=== PATIENT | male | born 1960 | race Caucasian/White ===

== ENCOUNTER 2020-07-03 06:18 | Observation (INO) | payer BC ==
[~2020-07-03] VITALS: Ht 170.2 cm; Wt 83.9 kg
[~2020-07-03 06:18] MED LIST: ARMOUR THYROID60 MG PO
[2020-07-03] MEDS ORDERED: SODIUM CHLORIDE 0.9% 1000ML 1,000 ML IV STA (06:24)
[2020-07-03] MEDS ORDERED: KETOROLAC TROMETHAMINE 30 MG/ML VIAL IV ONE (06:24)
[2020-07-03] MEDS ORDERED: ONDANSETRON HCL INJ 2MG/ML 2ML 2 MG/ML VIAL IV ONE (06:24)
[2020-07-03 06:46] LABS: BASOPHILS # (AUTO) 0.1 (0.0-0.1); BASOPHILS % 0.6 % (0.0-1.0); EOSINOPHILS # (AUTO) 0.1 (0.0-0.4); HEMATOCRIT 50.5 % (38.2-49.6); LYMPHOCYTES # (AUTO) 1.6 (1.0-3.2); LYMPHOCYTES % 20.7 % (18.0-39.1); MEAN CORPUSCULAR HEMOGLOBIN 31.7 pg (28-32); MEAN CORPUSCULAR HGB CONC 33.7 g/dL (31-35); MEAN CORPUSCULAR VOLUME 94.2 fL (81-99); MONOCYTES # (AUTO) 0.7 (0.2-0.8); MONOCYTES % 9.2 % (4.4-11.3); NEUTROPHILS # (AUTO) 5.4 (2.1-6.9); NEUTROPHILS % 67.7 % (38.7-80.0); PLATELET COUNT 192 x10e3/uL (140-360); RED BLOOD COUNT 5.36 x10e6/uL (4.3-5.7); RED CELL DISTRIBUTION WIDTH 12.4 % (11.7-14.4)
[2020-07-03 06:54] LABS: CLARITY,URINE CLEAR (CLEAR); COLOR,URINE YELLOW (YELLOW); KETONES,URINE NEGATIVE (NEGATIVE); LEUKOCYTE ESTERASE ,URINE NEGATIVE (NEGATIVE); NITRITE,URINE NEGATIVE (NEGATIVE); PROTEIN,URINE DIPSTICK NEGATIVE (NEGATIVE); URINE UROBILINOGEN 0.2 mg/dL (0.2 - 1)
[2020-07-03 07:08] LABS: BACTERIA,URINE RARE /HPF; EPITHELIAL CELLS,URINE FEW /LPF
[2020-07-03 07:16] LABS: ALANINE AMINOTRANSFERASE 19 IU/L (0-55); ALBUMIN 3.8 g/dL (3.5-5.0); ALKALINE PHOSPHATASE 56 IU/L (40-150); ANION GAP 13.2 mmol/L (8-16); BLOOD UREA NITROGEN 21 mg/dL (7-26); BUN/CREATININE RATIO 17 (6-25); CALCIUM 9.1 mg/dL (8.4-10.2); CARBON DIOXIDE 24 mmol/L (22-29); CHLORIDE 105 mmol/L (98-107); CREATINE KINASE 131 IU/L (30-200); CREATININE, SERUM 1.21 mg/dL (0.72-1.25); EST GLOMERULAR FILTRATION RATE > 60 ML/MIN (60-); GLUCOSE 133 mg/dL (74-118); POTASSIUM 4.2 mmol/L (3.5-5.1); SODIUM 138 mmol/L (136-145)
[2020-07-03] MEDS ORDERED: MORPHINE SULFATE INJ 4 MG/ML INJ 1ML IV PRN (09:15)
[2020-07-03] MEDS ORDERED: TAMSULOSIN HCL 0.4 MG CAP PO ONE (09:15)
[2020-07-03] MEDS ORDERED: MORPHINE SULFATE INJ 2 MG/ML SYR IV PRN (09:15)
[2020-07-03] MEDS ORDERED: ONDANSETRON HCL INJ 2MG/ML 2ML 2 MG/ML VIAL IV PRN ×2 (09:15→13:00)
[2020-07-03] MEDS: SODIUM CHLORIDE 0.9% 1000ML 1,000 ML IV SCH ×2 (09:29→13:35)
[2020-07-03] MEDS ORDERED: SODIUM CHLORIDE 0.9% 50ML 50 ML ONE (10:42)
[2020-07-03] MEDS ORDERED: IOPAMIDOL 370 MG/ML 200 ML INFUS..BTL INJ ONE (10:43)
[2020-07-03] MEDS ORDERED: LEVOTHYROXINE75 MCG PO (11:00)
[2020-07-03 11:47] VITALS: BP 145/68
[2020-07-03] MEDS ORDERED: KETOROLAC TROMETHAMINE 30 MG/ML VIAL IV PRN ×2 (12:00→13:30)
[2020-07-03] MEDS ORDERED: TRAMADOL HCL 50 MG TAB PO PRN (12:00)
[2020-07-03 12:02] VITALS: BP 145/68
[2020-07-03 12:09] VITALS: BP 145/68
[2020-07-03] MEDS ORDERED: DIPHENHYDRAMINE HCL 25 MG CAP PO PRN (13:00)
[2020-07-03] MEDS ORDERED: LIDOCAINE 4% PATCH TP PRN (13:00)
[2020-07-03] MEDS ORDERED: DEXTROSE 50% SYRINGE 50 ML IV PRN (13:00)
[2020-07-03] MEDS ORDERED: HYDROCODONE/APAP 5MG-325MG TAB PO PRN (13:00)
[2020-07-03] MEDS ORDERED: SIMETHICONE 80 MG CHEW PO PRN (13:00)
[2020-07-03] MEDS ORDERED: MELATONIN 5 MG TABLET PO PRN (13:00)
[2020-07-03] MEDS ORDERED: CHLORASEPTIC SPRAY 177 ML BTL MM PRN (13:00)
[2020-07-03] MEDS ORDERED: POTASSIUM CHLORIDE 20 MEQ TAB CR PO PRN (13:00)
[2020-07-03] MEDS ORDERED: ALBUTEROL/IPRATROPIUM 3 ML NEB NEB PRN (13:00)
[2020-07-03] MEDS ORDERED: ACETAMINOPHEN 325 MG TAB PO PRN (13:00)
[2020-07-03] MEDS ORDERED: HYDRALAZINE HCL 20 MG/ML VIAL IV PRN (13:00)
[2020-07-03] MEDS ORDERED: DOCUSATE SODIUM 100 MG CAP PO PRN (13:00)
[2020-07-03 15:42] VITALS: BP 115/75
[2020-07-03] MEDS: GABAPENTIN 300 MG CAP PO SCH (16:52)
[2020-07-03] MEDS: TAMSULOSIN HCL 0.4 MG CAP PO SCH (16:52)
[2020-07-03] MEDS: IBUPROFEN 400 MG TAB PO SCH (16:52)
[2020-07-03 20:58] VITALS: BP 121/87
[2020-07-03 21:11] VITALS: BP 121/87
[2020-07-04 00:19] VITALS: BP 101/69
[2020-07-04 05:12] LABS: BASOPHILS % 0.6 % (0.0-1.0); EOSINOPHILS # (AUTO) 0.1 (0.0-0.4); EOSINOPHILS % 1.1 % (0.0-6.0); HEMATOCRIT 44.7 % (38.2-49.6); HEMOGLOBIN 14.8 g/dL (14.0-18.0); LYMPHOCYTES # (AUTO) 1.8 (1.0-3.2); LYMPHOCYTES % 27.4 % (18.0-39.1); MEAN CORPUSCULAR HEMOGLOBIN 31.1 pg (28-32); MEAN CORPUSCULAR HGB CONC 33.1 g/dL (31-35); MEAN CORPUSCULAR VOLUME 93.9 fL (81-99); MONOCYTES # (AUTO) 0.7 (0.2-0.8); MONOCYTES % 11.3 % (4.4-11.3); NEUTROPHILS # (AUTO) 3.9 (2.1-6.9); NEUTROPHILS % 59.1 % (38.7-80.0); PLATELET COUNT 189 x10e3/uL (140-360); RED BLOOD COUNT 4.76 x10e6/uL (4.3-5.7); RED CELL DISTRIBUTION WIDTH 12.8 % (11.7-14.4)
[2020-07-04 05:16] VITALS: BP 109/76
[2020-07-04 05:38] LABS: ALANINE AMINOTRANSFERASE 14 IU/L (0-55); ALBUMIN 2.9 g/dL (3.5-5.0); ALKALINE PHOSPHATASE 47 IU/L (40-150); ANION GAP 9.8 mmol/L (8-16); BLOOD UREA NITROGEN 12 mg/dL (7-26); BUN/CREATININE RATIO 14 (6-25); CALCIUM 8.2 mg/dL (8.4-10.2); CARBON DIOXIDE 24 mmol/L (22-29); CHLORIDE 108 mmol/L (98-107); CREATININE, SERUM 0.86 mg/dL (0.72-1.25); EST GLOMERULAR FILTRATION RATE > 60 ML/MIN (60-); GLUCOSE 104 mg/dL (74-118); POTASSIUM 3.8 mmol/L (3.5-5.1); SODIUM 138 mmol/L (136-145)
[2020-07-04] MEDS ORDERED: LEVOTHYROXINE SODIUM 75 MCG TAB PO SCH (06:00)
[2020-07-04] MEDS ORDERED: PANTOPRAZOLE SOD 40 MG TABEC PO SCH (07:30)
[2020-07-04 07:49] VITALS: BP 114/81
[2020-07-04 08:36] VITALS: BP 114/81
[2020-07-04] MEDS: TAMSULOSIN HCL 0.4 MG CAP PO SCH (08:45)
[2020-07-04] MEDS: GABAPENTIN 300 MG CAP PO SCH (08:46)
[2020-07-04] MEDS: IBUPROFEN 400 MG TAB PO SCH (08:46)
[2020-07-04] MEDS: SODIUM CHLORIDE 0.9% 1000ML 1,000 ML IV SCH (08:49)
[2020-07-04] MEDS ORDERED: FLOMAX0.4 MG PO (10:22)
[2020-07-04] MEDS ORDERED: GABAPENTIN300 MG PO (10:23)
[2020-07-04] MEDS ORDERED: PANTOPRAZOLE SO40 MG PO (10:23)
[2020-07-04] MEDS ORDERED: IBUPROFEN800 MG PO (10:23)
[2020-07-04] MEDS ORDERED: CEFDINIR300 MG PO (10:23)
== END 2020-07-04 11:38 | disposition home or self-care (01) ==
LOC: ER 06:28 → ERHOLD 09:02 → MED/SURG2 10:49
PROVIDERS: ADMIT Internal Medicine; ATTEND Internal Medicine
DX: N13.2 Hydronephrosis with renal and ureteral calculous obstruction (principal); Z20.822 Contact with and (suspected) exposure to COVID-19; E03.9 Hypothyroidism, unspecified; E66.01 Morbid (severe) obesity due to excess calories; Z68.29 Body mass index [BMI] 29.0-29.9, adult
CPT/HCPCS: 36415 ×2; 74177; 80053 ×2; 81001; 82550; 82553; 83690; 84484; 85025 ×2; 97161; 99284; G0378 ×2; J1885; J2405; J7030 ×2; Q9967; S0164; U0002